=== PATIENT | male | born 1980 | race Two or more races ===

== ENCOUNTER 2019-11-13 14:26 | Emergency (ER) | payer OTHER ==
[~2019-11-13] VITALS: Ht 180.3 cm; Wt 46.3 kg
[2019-11-13 14:30] VITALS: BP 94/64
--- NOTE | 2019-11-13 14:30 | NUR ---
ED Nurse Note: Pt BIBA d/t s/p fall from wheelchair with foot pain and swelling since yesterday. Pt is AOx3, on RA. Per pt he has hx of MS. Placed on bed, will continue to monitor.
--- NOTE | 2019-11-13 14:50 | NUR ---
ED Nurse Note: ERPA on bedside.
--- NOTE | 2019-11-13 15:00 | NUR ---
ED Nurse Note: Pt verbalized he needs to pee, offered urinal.
--- NOTE | 2019-11-13 15:54 | Diagnostic Imaging Report ---
Indication: right leg pain Comparison: None Findings: Two views of the right tibia and fibula were obtained. There is an acute slightly displaced fracture of the shaft of the distal tibia. In addition there is a nondisplaced vertical component to the fracture extending to the ankle. There is an acute fracture of the fibular head. IMPRESSION: Acute fractures as described above
[2019-11-13 16:36] VITALS: BP 100/68
--- NOTE | 2019-11-13 16:41 | Emergency Room Report ---
History of Present Illness General Chief Complaint: Multiple Trauma/Fall Source: EMS Present Illness HPI 39-year-old male with history of multiple sclerosis currently not taking any medication and wheelchair-bound brought in by computer clerk due to pain and swelling right ankle and foot x1 day. Patient reports that he was trying to get off of his wheelchair into the bed as he slipped and hurt his foot. Patient still has sensation in both feet. Has not been taking his MS medication x4 years. Denies any drug use. Obvious swelling and deformity noted to the right ankle. Denies all other injuries, head injury, loss of consciousness, chest pain, shortness of breath, palpitation, or other associated symptoms. He also has fasciculations of right knee which reports is secondary to his MS. Complains of occasional numbness in both feet which reports has been ongoing for few months. Allergies: Coded Allergies: No Known Allergies (Unverified , 11/13/19) Patient History Past Medical History: see triage record Past Surgical History: unable to obtain Pertinent Family History: none Immunizations: UTD Reviewed Nursing Documentation: PMH: Agreed; PSxH: Agreed Nursing Documentation-PMH Past Medical History: No History, Except For Review of Systems All Other Systems: negative except mentioned in HPI Physical Exam Vital Signs Date Time Temp Pulse Resp B/P (MAP) Pulse Ox O2 Delivery O2 Flow Rate FiO2 11/13/19 14:28 97.9 109 16 94/64 (74) 98 Room Air Sp02 EP Interpretation: reviewed, normal General Appearance: no apparent distress, alert, GCS 15, non-toxic, mild distress, cachetic Head: normocephalic, atraumatic Eyes: bilateral eye normal inspection, bilateral eye PERRL ENT: hearing grossly normal, normal pharynx, no angioedema, normal voice Neck: full range of motion, supple/symm/no masses Respiratory: chest non-tender, lungs clear, normal breath sounds, no rhonchi, no wheezing, speaking full sentences Cardiovascular #1: regular rate, rhythm, no edema, no murmur, normal capillary refill Gastrointestinal: non tender, soft Genitourinary: no CVA tenderness Musculoskeletal: no calf tenderness, Portia's Sign negative, tender - right distal tibia Neurologic: alert, motor strength/tone normal, oriented x3, sensory intact, responsive, speech normal Psychiatric: judgement/insight normal, memory normal, mood/affect normal, no suicidal/homicidal ideation Skin: no rash Lymphatic: no adenopathy Procedures Splinting Splinting : Consent: Verbal Location: right ankle Hand-Made Type: plaster Splint: poserior short Pre-Proc Neuro Vasc Exam: normal Post-Proc Neuro Vasc Exam: normal Patient Tolerated: Well Complications: None Medical Decision Making PA Attestation All my diagnosis and treatment plans were reviewed ad discussed with my supervising physician Dr. Meredith Diagnostic Impression: Primary Impression: Displaced fracture of tibia ER Course 39-year-old male with history of multiple sclerosis currently not taking any medication and wheelchair-bound brought in by computer clerk due to pain and swelling right ankle and foot x1 day. Patient reports that he was trying to get off of his wheelchair into the bed as he slipped and hurt his foot. Patient still has sensation in both feet. Has not been taking his MS medication x4 years. Denies any drug use. Obvious swelling and deformity noted to the right ankle. Denies all other injuries, head injury, loss of consciousness, chest pain, shortness of breath, palpitation, or other associated symptoms. He also has fasciculations of right knee which reports is secondary to his MS. Complains of occasional numbness in both feet which reports has been ongoing for few months. Ddx considered but are not limited to: ankle sprain, ankle strain, ankle fracture, ankle contusion Vital signs: are WNL, pt. is afebrile H&PE are most consistent with: Mildly displaced fracture of right distal tibia ORDERS: ankle x-ray, knee x-ray, ibuprofen, Tylenol 3 ED INTERVENTIONS: Splint was applied, patient was wheeled wheeled wheelchair to the car. Patient has a culture at home. DISCHARGE: At this time pt. is stable for d/c to home. Will provide printed patient care instructions, and any necessary prescriptions. Care plan and follow up instructions have been discussed with the patient prior to discharge. Patient to follow-up with human resources services specialist, take medication as directed, worsening symptoms, swelling underneath splint return to the emergency room. Other X-Ray Diagnostic Results Other X-Ray Diagnostic Results #1: X-Ray ordered: right ankle # of Views/Limited Vs Complete: 3 View Indication: Pain EP Interpretation: Yes PA Xray: Interpretation reviewed, by supervising MD, and agrees with findings. Interpretation: other - fx right distal tibia Impression: Other - fx right distal tibia Electronically Signed by: Suhail Walters PA-C Other X-Ray Diagnostic Results #2: X-Ray ordered: right ankle post reduction # of Views/Limited Vs Complete: 3 View Indication: Pain EP Interpretation: Yes PA Xray: Interpretation reviewed, by supervising MD, and agrees with findings. Interpretation: other - fx right distal tibia mildly displaced Impression: Other - displaced fx right distal tibia Electronically Signed by: Suhail Walters PA-C Other X-Ray Diagnostic Results #3: X-Ray ordered: right knee # of Views/Limited Vs Complete: 3 View Indication: Pain EP Interpretation: Yes PA Xray: Interpretation reviewed, by supervising MD, and agrees with findings. Interpretation: no dislocation, no soft tissue swelling, no fractures Impression: No acute disease Electronically Signed by: Suhail Walters PA-C Last Vital Signs Date Time Temp Pulse Resp B/P (MAP) Pulse Ox O2 Delivery O2 Flow Rate FiO2 11/13/19 16:36 97.9 71 18 100/68 100 Room Air Disposition: HOME, SELF-CARE Condition: Stable Scripts Acetaminophen With Codeine (T#3) (TYLENOL #3 TAB*) Y Tab 1 TAB ORAL BEDTIME PRN for For Pain for 3 Days, #10 TAB Prov: Suhail Frank 11/13/19 Ibuprofen (Ibu) 800 Mg Tablet 800 MG PO TID, #30 TAB Prov: Suhail Frank 11/13/19 Patient Instructions: Tibial Fracture, Adult, [id number] Additional Instructions: Take medication as directed, follow-up with human resources services specialist, if worsening symptoms return to the emergency room Suhail Frank Nov 13, 2019 16:41
[2019-11-13] MEDS ORDERED: IBU800 MG PO (16:43)
[2019-11-13] MEDS ORDERED: ACETAMINOPHEN-1 EAC1 ORAL (16:43)
[2019-11-13 17:00] VITALS: BP 110/70
--- NOTE | 2019-11-13 17:00 | NUR ---
ER DISCHARGE NOTE: Patient is cleared to be discharged per ERMD, pt is aox4, on room air, with stable vital signs. pt was given dc and prescription instructions, pt was able to verbalize understanding, pt id band removed. pt left ED via wheelchair accompanied by family members.
--- NOTE | 2019-11-13 18:26 | Diagnostic Imaging Report ---
EXAM: XR Right Tibia and Fibula, 2 Views CLINICAL HISTORY: PAIN TECHNIQUE: Frontal and lateral views of the right tibia and fibula. COMPARISON: No relevant prior studies available. FINDINGS: Bones/joints:. Spiral fracture of the mid-distal right tibial shaft. 6 mm of lateral displacement. Mild overriding of fragments as well. Fracture of the right fibular neck. Minimal displacement. Generalized osteopenia. Soft tissues: No radiopaque foreign body. IMPRESSION: Right tibial shaft and fibular neck fractures.
== END 2019-11-13 17:00 | disposition home or self-care (01) ==
LOC: EDBD 14:26 → EMR 15:00
DX: S82.301A Unspecified fracture of lower end of right tibia, initial encounter for closed fracture (principal); G35 Multiple sclerosis; W05.0XXA Fall from non-moving wheelchair, initial encounter; Y93.89 Activity, other specified; Y92.013 Bedroom of single-family (private) house as the place of occurrence of the external cause
CPT/HCPCS: 29515; 99284